=== PATIENT | female | born 1940 | race Caucasian/White ===

== ENCOUNTER → 2021-12-23 | Outpatient (CLI) | payer MEDICARE ==
--- NOTE | 2021-12-24 07:40 | XR ---
EXAMINATION TYPE: XR knee complete LT DATE OF EXAM: 12/23/2021 CLINICAL HISTORY: pain TECHNIQUE: Three views of the left knee are obtained. COMPARISON: None. FINDINGS: There is no acute fracture/dislocation. The tri-compartment joint spaces appear moderatel y narrowed. Meniscal chondrocalcinosis seen. The overlying soft tissue appears unremarkable. IMPRESSION: There is no acute fracture or dislocation ICD 10 NO FRACTURE, INITIAL EVALUATION
--- NOTE | 2021-12-24 07:49 | US ---
EXAMINATION TYPE: US extremity nonvasculr ltd LT DATE OF EXAM: 12/23/2021 COMPARISON: NONE CLINICAL HISTORY: M17.12 Unilateral primary osteoarthritis, left knee. Left knee pain for the past 2- 3 months with a prior history of DVT in same leg. Left popiteal fossa area scanned and surrounding knee no mass or fluid collections seen. IMPRESSION: No evidence of popliteal fossa mass.
== END | disposition home or self-care (01) ==
LOC: RADUSWWP 15:39
PROVIDERS: ATTEND Family Medicine
DX: M71.22 Synovial cyst of popliteal space [Baker], left knee (principal); M17.12 Unilateral primary osteoarthritis, left knee; Z86.718 Personal history of other venous thrombosis and embolism

== ENCOUNTER → 2022-08-03 | Outpatient (CLI) | payer MEDICARE ==
[2022-08-03 12:27] LABS: African American GFR (CKD) >90 (>60 ml/min/1.73 sqM); Blood Urea Nitrogen 26 mg/dL (7-17); Non-African American GFR(CKD) 78 (>60 ml/min/1.73 sqM)
--- NOTE | 2022-08-05 21:37 | CT ---
EXAMINATION TYPE: CT chest w con CT DLP: 415.9 mGycm, Automated exposure control for dose reduction was used. DATE OF EXAM: 08/03/2022 12:48 PM COMPARISON: Chest radiograph 01/07/2022, CT chest 05/18/2018. CLINICAL INDICATION:Female, 82 years old with history of R91.1 SOLITARY LUNG NODULE; PHH, f/u nodules TECHNIQUE: Multiple axial images were obtained through the chest. Sagittal and coronal reformats were created for review. Contrast used:100 mL of Isovue 300 with IV Contrast, none. Oral contrast used: none. FINDINGS: LUNGS/ PLEURA: No evidence of focal consolidation, pneumothorax or pleural effusion. Scattered reticu lar opacities atelectasis seen within the lung bases. No suspicious pulmonary nodules. Few scattered groundglass opacities mostly peripherally noted. AIRWAY: Patent , bronchiectasis seen within lung bases. HEART: Heart is mildly enlarged for size. There is mild atherosclerosis of the coronary arteries. MEDIASTINUM: No gross evidence of adenopathy. Small hiatal hernia is present. VASCULATURE: No aortic aneurysm. Dilated pulmonary trunk measuring up to 36 mm. MUSCULOSKELETAL: No acute osseous abnormalities, multilevel disc degeneration changes throughout the SOFT TISSUES/LYMPH NODES: Unremarkable. LOWER NECK: No significant findings. UPPER ABDOMEN: Scattered low density areas are seen within the liver which are very subtle. Example i ncludes series 3 image 43 measuring up to 23 mm series 3 image 47 measuring 28 mm series 3 image 56, series 3 image 43 measuring 18 mm along with others there are more subtle. Scattered clonic diverticu la present. Final duct particularly third portion of the duodenum. IMPRESSION: 1. Interstitial lung disease most pronounced along the periphery which could represent NSIP versus o ther etiologies. Overall findings minimally progressed from 2018. 2. Low-density areas which are subtle seen throughout the liver, dedicated MRI/CT liver mass protoco l is recommended to rule out underlying lesions. 3. Pulmonary hypertension.
== END | disposition home or self-care (01) ==
LOC: RADCTMAIN 11:11
PROVIDERS: ATTEND Family Medicine
DX: R91.8 Other nonspecific abnormal finding of lung field (principal); I27.20 Pulmonary hypertension, unspecified
CPT/HCPCS: 82565; 84520; 71260; 36415; Q9967

== ENCOUNTER → 2022-08-26 | Outpatient (CLI) | payer MEDICARE ==
--- NOTE | 2022-08-27 06:25 | MR ---
EXAMINATION TYPE: MR liver wo/w con DATE OF EXAM: 08/26/2022 COMPARISON: None HISTORY: Previous abnormal findings CONTRAST: Standard multiplanar, multisequence MRI departmental protocol images were obtained without contrast a nd with 9 mL intravenous Gadavist gadolinium contrast. There are numerous variable sized somewhat rounded areas of abnormal increased signal on the T1 image s in the right and left lobe of the liver. These measure up to 2 cm. The lesions are not very visible on the T2 images and are not cysts. Spleen is intact. No significant enhancement. There is no eviden ce of pancreatic mass. The stomach is intact. No evidence of pleural effusion. Heart size is fairly normal. No sign of pericardial effusion. There is no adrenal mass. Kidneys have normal size. No hydronephrosis. Ureters are not dilated. No si gn of retroperitoneal adenopathy. There is normal enhancement of the portal venous system. No evidenc e of ascites. No sign of a bowel obstruction. IMPRESSION: Numerous rounded foci without significant enhancement throughout the liver. 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 No dilated ducts.
== END | disposition home or self-care (01) ==
LOC: RADMRIMAIN 06:43
PROVIDERS: ATTEND Family Medicine
DX: R93.5 Abnormal findings on diagnostic imaging of other abdominal regions, including retroperitoneum (principal)
CPT/HCPCS: 74183; A9585

== ENCOUNTER → 2022-09-25 | Outpatient (CLI) | payer MEDICARE ==
--- NOTE | 2022-09-28 13:12 | PE ---
EXAMINATION TYPE: PET CT fusion skull to thigh DATE OF EXAM: 09/25/2022 COMPARISON: Most recent chest CT August 03, 2022. Liver MRI August 26, 2022 HISTORY: Abnormal imaging, retroperitoneal lesion. TECHNIQUE: Following the intravenous administration of 8.98 mCi of F-18 FDG, whole body images are p erformed from the skull base to the midthigh. Images are reviewed on the computer in the coronal, ax ial, and sagittal planes. Reconstructed rotating images are created on independent workstation and r eviewed on the computer. A localization and attenuation correction CT is performed in conjunction w ith the PET scan. Blood glucose level equals 91 SCAN: Initial Scan FINDINGS: SKULL BASE AND NECK: No areas of abnormal hypermetabolic uptake. CHEST, MEDIASTINUM, AND HILAR REGION: No areas of abnormal hypermetabolic uptake. ABDOMEN AND PELVIS: Heterogeneous hypodense areas or possible masses throughout the liver are redemon strated without abnormal hypermetabolic uptake. Normal excretion. No areas of abnormal hypermetabolic uptake. OSSEOUS STRUCTURES: No areas of abnormal hypermetabolic uptake. OTHER CT: There is complete opacification of the left maxillary sinus with wall thickening and sclero sis suggests chronic sinusitis. Cardiomegaly with enlarged pulmonary arteries suggesting pulmonary artery hypertension. Parenchymal r eticulation and fibrotic change bilaterally redemonstrated. Facet arthropathy in the lower lumbar spine is seen. IMPRESSION: No areas of abnormal hypermetabolic uptake to suggest malignancy. Hypodense areas or mass es throughout the liver are present on outside CT chest 2018 and described as present on prior CT abd omen from 2013. This chronic presence along with absence of abnormal hypermetabolic uptake strongly s upports a benign etiology.
== END | disposition home or self-care (01) ==
LOC: RADPETMAIN 07:13
PROVIDERS: ATTEND Family Medicine
DX: R93.5 Abnormal findings on diagnostic imaging of other abdominal regions, including retroperitoneum (principal)
CPT/HCPCS: 78815; A9552

== ENCOUNTER → 2025-01-24 | Outpatient (CLI) | payer MEDICARE ==
--- NOTE | 2025-01-29 13:55 | CT ---
EXAMINATION TYPE: CT chest wo con DATE OF EXAM: 01/24/2025 3:34 PM COMPARISON: CT 08/03/2022. CLINICAL INDICATION: Female, 84 years old with history of J84.9 INTERSTITIAL PULMONARY DISEASE, UNSPE CIFIED; PHH, Interstitial pulmonary disease. High Resolution TECHNIQUE: High-resolution CT with 1's millimeter cuts at 10 mm intervals. Multiple axial images were obtained through the chest. Sagittal and coronal reformats were created for review. MIP was performe d on a separate workstation. Contrast used: mL of (None if empty) Oral contrast used: (None if empty) CT DLP: 1010.60 mGycm, Automated exposure control for dose reduction was used. FINDINGS: LUNGS: Scattered groundglass opacities with interstitial prominence throughout the lungs worse in the right lung apex. There is coarsened interstitium most pronounced in the lung bases. Findings worse i n expiration. On inspiratory view the great vessels appearance slightly reduces particularly in the l yumi No evidence for honeycombing at this time however dilated large airways are seen along the base o f the lungs. No acute area of infiltrative or consolidative change. LARGE AIRWAYS: Bronchial wall dilation noted in predominantly in the lung bases. PLEURA: No pleural effusion or thickening. HEART: Cardiomegaly is demonstrated. Mild coronary artery calcifications present. MEDIASTINUM: No gross evidence of adenopathy. Small hiatal hernia present. VASCULATURE: No aortic aneurysm. MUSCULOSKELETAL: No acute osseous abnormalities SOFT TISSUES/LYMPH NODES: Unremarkable. LOWER NECK: No significant findings. UPPER ABDOMEN: No significant findings. IMPRESSION: 1. Interstitial lung disease with bronchiectasis. Correlate for sequela of prior infection. Mild ate lectasis within the lung bases. Findings could represent early pulmonary fibrosis however this is not significantly changed from 2021. No focal airspace consolidation or suspicious mass. 2. Cardiomegaly. 3. Small hiatal hernia. [facility], , 01/29/2025 1:52 PM
== END | disposition home or self-care (01) ==
LOC: RADCTMAIN 14:57
PROVIDERS: ATTEND Internal Medicine
DX: J84.9 Interstitial pulmonary disease, unspecified (principal); J47.9 Bronchiectasis, uncomplicated; I51.7 Cardiomegaly; K44.9 Diaphragmatic hernia without obstruction or gangrene; J98.11 Atelectasis
CPT/HCPCS: 71250